=== PATIENT | male | born 1985 | race Caucasian/White ===

== ENCOUNTER 2017-11-05 01:47 | Emergency (ER) | payer OTHER ==
[~2017-11-05] VITALS: Ht 180.3 cm; Wt 102.8 kg
[~2017-11-05 01:47] MED LIST: MEDROL DOSEPAK4 MG PO; METHADONE PO; METHADOSE10 MG/1 ML PO; MUCINEX DM ER1 EACH PO; NAPROSYN500 MG PO; NAPROXEN500 MG PO; NO HOME MEDS; NOHOMEMEDS; PEPCID20 MG PO; VICODIN 5-3001 EACH PO; ZITHROMAX TRI-500 MG PO; ZOFRAN4 MG PO
[2017-11-05] MEDS ORDERED: NORCO 5/3251 TABLET PO (03:13)
[2017-11-05 03:42] VITALS: BP 114/82
== END 2017-11-05 03:43 | disposition home or self-care (01) ==
LOC: EME 01:47
DX: S49.91XA Unspecified injury of right shoulder and upper arm, initial encounter (principal); S20.211A Contusion of right front wall of thorax, initial encounter; W10.9XXA Fall (on) (from) unspecified stairs and steps, initial encounter; F11.20 Opioid dependence, uncomplicated; F17.200 Nicotine dependence, unspecified, uncomplicated
CPT/HCPCS: 71046; 71100; 71101; 73060; 73080; 73090; 99281; 99284; J3010